=== PATIENT | female | born 2000 | race Caucasian/White ===

== ENCOUNTER 2021-07-01 04:00 | Emergency (ER) | payer OTHER, MEDICAID, SELFPAY ==
[2021-07-01 04:10] VITALS: BP 132/80; PULSE 115; RESP 22; TEMP 36.3; O2SAT 95; BMI 31.1
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
[2021-07-01] MEDS: LORazepam 0.5 MG TABLET PO (04:40)
== END 2021-07-01 04:55 | disposition home or self-care (01) ==
PROVIDERS: Emergency Provider Emergency Medicine
DX: F41.9 Anxiety disorder, unspecified (principal); F17.200 Nicotine dependence, unspecified, uncomplicated
CPT/HCPCS: 99283

== ENCOUNTER 2021-07-17 00:02 | Emergency (ER) | payer OTHER, MEDICAID, SELFPAY ==
[2021-07-17 00:09] VITALS: BP 132/93; PULSE 92; RESP 22; TEMP 37.1; O2SAT 100
[2021-07-17 00:33] LABS: Bacteria Urine Many (>30); RBC Urine 0-1/HPF (0-5/HPF); Squamous Epithelial Cell Urine 1-5 /HPF (0-5/HPF); WBC Urine 10-30/HPF (0-5/HPF)
[2021-07-17 00:34] LABS: Culture Indicated Urine Specimen Cultured
[2021-07-17] MEDS: cephALEXin 250 MG PREPACK 1 BOTTLE MISC (00:36)
--- NOTE | 2021-07-17 00:37 | ED_ITS ---
HPI - Female Genitourinary General Chief complaint: Urogenital-Female Stated complaint: UTI Time Seen by Provider: 07/17/21 00:27 Source: patient Mode of arrival: Ambulatory History of Present Illness HPI Narrative: 20-year-old female daily smoker without chronic medical problems presents with a chief complaint of 12-24 hours of dysuria, frequency and urgency. She denies any chance of being . She denies vaginal bleeding or discharge. She denies systemic findings such as fever, chills nor nausea or vomiting. She has no back pain. Related Data Previous Rx's Medication Instructions Recorded hydroxyzine HCl 50 mg tablet 50 mg PO QID PRN #30 tab 07/01/21 cephalexin 500 mg capsule 500 mg PO BID #10 cap 07/17/21 Review of Systems Review of Systems Narrative: GENERAL: Denies chills, fatigue, malaise, fever, sweats. HEENT: Denies sinus pain, ear pain, sore throat, difficulty swallowing, dizziness. RESPIRATORY: Denies dyspnea, cough, wheezing, hemoptysis, sputum. CARDIOVASCULAR: Denies chest pain, palpitations, orthopnea, edema, GASTROINTESTINAL: Denies nausea, vomiting, abdominal pain, diarrhea, constipation, melena. : See HPI MUSCULOSKELETAL: denies weakness, joint pain, or bony pain SKIN: Denies rash, skin lesions, or other NEUROLOGIC: Denies weakness, headache, numbness, change in speech, confusion, seizures, incoordination. PSYCHIATRIC: No concerning psychosocial issues. 12 point review of systems is negative except for those stated above Patient History alcohol intake frequency: 0-2 drinks per day Substance Use Type: marijuana and methamphetamine Exam Narrative Exam Narrative: GEN: AOx3 and in mild distress EYES: Pupils are equal, round, and reactive to light and accommodation. Extraoccular muscles are intact bilaterally. There is no subconjunctival hemorrhage or exudate. CHEST: Lungs are clear to auscultation bilaterally and free of wheezes, rales, or rhonchi. Heart rate is regular rhythm, there are no murmurs, clicks, rubs, or gallops. There is no chest wall tenderness. ABD: Abdomen is soft and nontender. There is no guarding or rebound. Bowel sounds are normal in all 4 quadrants. There is no mass or organomegaly. BACK: Back is nontender and free of any obvious external abnormalities. Patient exam is absent of any decreased range of motion, muscle spasm, CVA tenderness, or vertebral point tenderness. There are no symptoms of cauda equina such as saddle anesthesia, and decreased reflexes, decreased sensation or strength. EXT: Full painless ROM of all extremities with no loss of sensation or strength. SKIN: Warm, pink, and dry. No erythema or rash Initial Vital Signs Initial Vital Signs: Vital Signs Temperature 98.7 F 07/17/21 00:09 Pulse Rate 92 H 07/17/21 00:09 Respiratory Rate 22 07/17/21 00:09 Blood Pressure 132/93 H 07/17/21 00:09 Pulse Oximetry 100 07/17/21 00:09 Course Orders Ordered: ED Orders 07/17/21 00:11 Urine Culture Stat 07/17/21 00:21 Urine Microscopic Stat Discontinued Medications Cefazolin Sodium (Cephalexin 250 Mg Prepack) 1 bottle MIS SEEINSTR ONE Stop: 07/17/21 00:28 Last Admin: 07/17/21 00:36 Dose: 1 bottle Documented by: TRANG Vital Signs Vital signs: Vital Signs - 8 hr 07/17/21 00:09 Temperature 98.7 F Pulse Rate 92 H Respiratory Rate 22 Blood Pressure 132/93 H Pulse Oximetry 100 MDM - Female Genitourinary Lab Data Labs: Lab Results 07/17/21 Range/Units 00:11 Urine RBC 0-1/hpf (0-5/HPF) Urine WBC 10-30/hpf H (0-5/HPF) Ur Squamous Epith Cells 1-5 /hpf (0-5/HPF) Urine Bacteria Many (>30) H (None) Ur Culture Indicated? Specimen cultured Point of Care Testing Test Results Negative Urine Dip Bedside Urine Glucose Negative Bedside Urine Bilirubin - Negative Bedside Urine Ketone +/- 5 Urine Specific [place] 1.025 Bedside Urine Occult Blood - Negative Bedside Urine pH 6.0 Bedside Urine Protein - Negative Bedside Urine Urobilinogen - Negative Bedside Urine Nitrite - Negative Bedside Urine Leukocytes + 70 Esterase Discharge Plan Departure Patient Disposition: Home Clinical Impression: Urinary tract infection Instructions: DI for Urinary Tract Infection (UTI) Activity Restrictions/Additional Instructions: *You have been diagnosed with [urinary tract infection] *What to do: *Please continue to take your regular medications as directed. [ x] New medication prescriptions sent to your pharmacy: [ [facility]] [ ] New medication written as a paper prescription [ ] No new medications given *Please follow up with your primary care provider in 2-3 days, call for an appointment. Let them know you were seen in the Emergency Department and that we ask that you be seen in follow up. We will electronically transmit a record of today's note if your PCP is in our system *If you do not have a primary care provider please contact the [facility] Resource line at [phone]. They will ask some questions about your medical history and help get you set up with a doctor in the community. *Return to Emergency Department if you should have any new, worsening or concerning symptoms, such as [fever greater than 101 F, shaking chills, worsening pain, persistent vomiting or other bothersome symptoms] Prescriptions: New cephalexin 500 mg capsule 500 mg PO BID Qty: 10 0RF No Action hydroxyzine HCl 50 mg tablet 50 mg PO QID PRN (Reason: anxiety) Qty: 30 0RF Referrals: Miscellaneous,Doctor, MD [Primary Care Provider] -
== END 2021-07-17 00:37 | disposition home or self-care (01) ==
PROVIDERS: Emergency Provider Emergency Medicine
DX: N39.0 Urinary tract infection, site not specified (principal)
CPT/HCPCS: 81003; 81015; 81025; 87077; 87086; 87186; 99282

== ENCOUNTER 2021-09-13 18:59 | Emergency (ER) | payer OTHER, MEDICAID, SELFPAY ==
[2021-09-13 19:16] VITALS: BP 137/86; PULSE 92; RESP 22; TEMP 36.7; O2SAT 99
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
== END 2021-09-13 20:21 | disposition home or self-care (01) ==
PROVIDERS: Emergency Provider Emergency Medicine
DX: F32.A Depression, unspecified (principal); S50.811A Abrasion of right forearm, initial encounter; X78.9XXA Intentional self-harm by unspecified sharp object, initial encounter
CPT/HCPCS: 99282; 99283

== ENCOUNTER 2021-11-05 01:13 | Emergency (ER) | payer OTHER, MEDICAID, SELFPAY ==
[2021-11-05 01:18] VITALS: BP 127/89; PULSE 68; RESP 18; TEMP 35.9; O2SAT 98
[2021-11-05 02:16] LABS: Bacteria Urine Many (>30); RBC Urine 5-10/HPF (0-5/HPF); Squamous Epithelial Cell Urine 5-10 /HPF (0-5/HPF)
[2021-11-05 02:17] LABS: Culture Indicated Urine Cult Not Indicated; Mucus Urine 1+ (Negative); WBC Urine 5-10/HPF (0-5/HPF)
--- NOTE | 2021-11-05 02:20 | ED.GENADULT ---
HPI - General Adult General Chief complaint: Urogenital-Female Stated complaint: dark urine w/odor adb pain x1 day Time Seen by Provider: 11/05/21 01:47 Source: patient Mode of arrival: Ambulatory History of Present Illness HPI narrative: Otherwise healthy 21-year-old woman presents today complaining that her urine is darker and smells stronger. She also notes that she has had some vaginal spotting today. She started control pills approximately 3 months ago and is currently mid cycle month 3 and states she takes pills regularly. She also has questions regarding testing for fertility and wondering if bladder infections an yeast infections might adversely affect her fertility. She has no complaints of fever, cough, abdominal pain, nausea, vomiting, diarrhea, dysuria, flank pain Related Data Previous Rx's Medication Instructions Recorded hydroxyzine HCl 50 mg tablet 50 mg PO QID PRN anxiety #30 tabs 07/01/21 cephalexin 500 mg capsule 500 mg PO BID #10 caps 07/17/21 Review of Systems Review of Systems Narrative: Remainder of complete review of systems is otherwise unremarkable except for that included in the HPI. Patient History Medical History Depression Social History Smoking Status: Current every day smoker Smoking Status: Current every day smoker alcohol intake frequency: 0-2 drinks per day Substance Use Type: marijuana and methamphetamine Exam Initial Vital Signs Initial Vital Signs: Vital Signs Temperature 96.7 F L 11/05/21 01:18 Pulse Rate 68 11/05/21 01:18 Respiratory Rate 18 11/05/21 01:18 Blood Pressure 127/89 11/05/21 01:18 Pulse Oximetry 98 11/05/21 01:18 Oxygen Delivery Method 11/05/21 01:18 General: Alert appropriate in no acute distress Respiratory: Able to speak in full sentences, no obvious respiratory distress Skin: No obvious rashes, warm and dry Neurologic: Grossly intact no obvious asymmetries or abnormalities Psych: appropriate insight and affect, cooperative Course Orders Ordered: ED Orders 11/05/21 01:30 Urine Microscopic Stat Vital Signs Vital signs: Vital Signs - 8 hr 11/05/21 01:18 Temperature 96.7 F L Pulse Rate 68 Respiratory Rate 18 Blood Pressure 127/89 Pulse Oximetry 98 Oxygen Delivery Method Room Air Medical Decision Making Lab Data Labs: Lab Results 11/05/21 Range/Units 01:30 Urine RBC 5-10/hpf H (0-5/HPF) Urine WBC 5-10/hpf H (0-5/HPF) Ur Squamous Epith Cells 5-10 /hpf H (0-5/HPF) Urine Bacteria Many (>30) H (None) Urine Mucus 1+ H (Negative) Ur Culture Indicated? Cult not indicated Urine Dip Bedside Urine Glucose Negative Bedside Urine Bilirubin - Negative Bedside Urine Ketone - Negative Urine Specific [place] 1.020 Bedside Urine Occult Blood +++ Bedside Urine pH 6.0 Bedside Urine Protein - Negative Bedside Urine Urobilinogen - Negative Bedside Urine Nitrite - Negative Bedside Urine Leukocytes - Negative Esterase Point of care testing: Urine Dip Bedside Urine Glucose Negative Bedside Urine Bilirubin - Negative Bedside Urine Ketone - Negative Urine Specific [place] 1.020 Bedside Urine Occult Blood +++ Bedside Urine pH 6.0 Bedside Urine Protein - Negative Bedside Urine Urobilinogen - Negative Bedside Urine Nitrite - Negative Bedside Urine Leukocytes - Negative Esterase MDM Narrative Medical decision making narrative: 21-year-old woman with complaints of darker urine and now noting vaginal spotting. Her urinalysis shows minor amount of blood only. There is no evidence of bladder infection, kidney infection, , sexually transmitted infection. We discussed the lack of testing that can predict actual fertility aside from trying to get . We also talked about irregular bleeding and spotting commonly happening in the 1st months of starting control pills. I suggested that the dark urine may be related to mild dehydration and that she needs to drink more water while she is work. She seems satisfied with all of these answers had no additional questions and is safe for home discharge Discharge Plan Departure Patient Disposition: Home Clinical Impression: Vaginal spotting Activity Restrictions/Additional Instructions: Thank you for coming in today Your urine test is quite reassuring. There is no evidence of a bladder infection. I suspect that the darker color and more noticeable smell is simply because your slightly dehydrated and need to be drinking more water You mentioned having some vaginal spotting today and you are currently mid cycle with control pills. This is currently your 3rd month on control pills and occasionally you can have irregular spotting. At this point I would recommend giving it a bit more time and continuing control pills at the same time every day as you have been doing. If you continue to have spotting please follow-up with your OBGYN to see if you need a different type of control pill. If you find that you are getting worse or develop any new symptoms, please feel free to return to the emergency department for further evaluation. Prescriptions: No Action cephalexin 500 mg capsule 500 mg PO BID Qty: 10 0RF hydroxyzine HCl 50 mg tablet 50 mg PO QID PRN (Reason: anxiety) Qty: 30 0RF Referrals: Miscellaneous,Doctor, MD [Primary Care Provider] -
[2021-11-05 02:42] VITALS: BP 129/71; PULSE 72; RESP 18; O2SAT 99
== END 2021-11-05 02:42 | disposition home or self-care (01) ==
PROVIDERS: Emergency Provider Emergency Medicine
DX: N93.9 Abnormal uterine and vaginal bleeding, unspecified (principal)
CPT/HCPCS: 81003; 81015; 99281; 99282

== ENCOUNTER 2022-02-08 15:32 | Emergency (ER) | payer OTHER, MEDICAID, SELFPAY ==
[2022-02-08 16:04] VITALS: BP 107/73; PULSE 100; RESP 20; TEMP 36.2; O2SAT 100; BMI 31.4
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
--- NOTE | 2022-02-08 17:02 | ED.PSYCH ---
HPI - Psych General Chief Complaint: Psychiatric Symptoms Stated Complaint: Mental breakdown, Anxiety, Stress Time Seen by Provider: 02/08/22 16:26 Source: patient Mode of arrival: Family Vehicle History of Present Illness HPI Narrative: Patient is a 21-year-old female presents with suicide ideation and depression. She says that she frequently has suicidal thoughts but she never really act on them. Her depression kind of comes and goes in waves. She has been trying for quite some time to get help but has been unsuccessful. She says that she call [facility] every Saturday for help and can not get any. No in will start her on antidepression medication without seeing a psychiatrist. She tried to get started back on her ADHD medication however her PCP would not give it to her. 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 She has severe anxiety reaction today. She was supposed to go to work at 11:00 a.m. she forgot to set her alarm she says the that is normal for her. She woke up at 2pm, she and her fiance did some personal things were then she was upset that she did not go to work. She has had some stress with her car. She now is claiming that she wants to kill herself because she can not get help. She has stenosis number enough time. Related Data Previous Rx's Medication Instructions Recorded hydroxyzine HCl 50 mg tablet 50 mg PO QID PRN anxiety #30 tabs 07/01/21 cephalexin 500 mg capsule 500 mg PO BID #10 caps 07/17/21 Allergies Allergy/AdvReac Type Severity Reaction Status Date / Time No Known Drug Allergies Allergy Verified 02/08/22 16:04 Review of Systems Review of Systems Narrative: GENERAL: Denies chills, fatigue, malaise, fever, sweats, travel HEENT: Denies sinus pain, ear pain, sore throat, difficulty swallowing, neck pain RESPIRATORY: Denies dyspnea, cough, wheezing, hemoptysis, sputum. CARDIOVASCULAR: Denies chest pain, palpitations, orthopnea, edema GASTROINTESTINAL: Denies nausea, vomiting, abdominal pain, diarrhea, constipation, melena. : Denies dysuria, frequency, incontinence, hematuria, urinary retention, flank pain. MUSCULOSKELETAL: Denies weakness, joint pain, or bony pain SKIN: No rash, no erythema, no pruritus NEUROLOGIC: Denies weakness, dizziness, headache, numbness, change in speech, confusion PSYCHIATRIC: See HPI 12 point review of systems is negative except for those stated above and HPI Patient History Medical History Depression Social History Smoking Status: Current every day smoker Smoking Status: Current every day smoker alcohol intake frequency: 0-2 drinks per day Substance Use Type: former substance user, marijuana and methamphetamine Exam Initial Vital Signs Initial Vital Signs: Vital Signs Temperature 97.2 F L 02/08/22 16:04 Pulse Rate 100 H 02/08/22 16:04 Respiratory Rate 20 02/08/22 16:04 Blood Pressure 107/73 02/08/22 16:04 Pulse Oximetry 100 02/08/22 16:04 Oxygen Delivery Method 02/08/22 16:04 GENERAL: Well-appearing, well-nourished and in no acute distress. CARDIOVASCULAR: peripheral pulses in tact, cap refill <2 sec RESPIRATORY: No respiratory distress, speaks in full sentences without difficulty EXTREMITIES: Normal range of motion, no clubbing or edema. Neurovascularly intact NEUROLOGICAL: Cranial nerves II through XII grossly intact. Normal gait and speech. SKIN: Warm, dry, no petechiae, no rashes or lesions. Psych Appearance: grossly normal and well kempt Mental Status: mental status grossly normal Speech and Movement: speech and movement normal and speech clear Mood: anxious mood and dysthymic mood Affect: sad Attitude: cooperative Thought Process: normal and circumstantial Thought Content: normal Judgment: judgment good and fair Course Orders Ordered: ED Orders 02/08/22 16:15 Consult to [employer] - [employer] Technician Stat 02/08/22 17:00 Acetaminophen Stat Complete Blood Count AUTO DIFF Stat Comprehensive Metabolic Panel Stat Ethanol (ETOH) Stat Free T4, Direct Thyroxine Stat Salicylate Stat Thyroid Stimulating Hormone Stat Vital Signs Vital signs: Vital Signs - 8 hr 02/08/22 16:04 Temperature 97.2 F L Pulse Rate 100 H Respiratory Rate 20 Blood Pressure 107/73 Pulse Oximetry 100 Oxygen Delivery Method Room Air MDM - Psych Lab Data Result diagrams: 02/08/22 17:00 02/08/22 17:00 Labs: Lab Results 02/08/22 02/08/22 02/08/22 Range/Units 17:00 17:00 17:00 WBC 7.6 (4.5-11.0) X10^3/uL RBC 5.07 (4.0-5.2) X10^6/uL Hgb 15.3 (12.0-16.0) g/dL Hct 44.4 (36-46) % MCV 87.6 (80-100) fL MCH 30.2 (26-34) PG MCHC 34.4 (30-36) % RDW 13.0 (11.6-14.8) % Plt Count 210 (150-400) X10^3/uL Neut % (Auto) 67.3 (50-75) % Lymph % (Auto) 22.6 L (25-40) % Fergus % (Auto) 6.1 (3-14) % Eos % (Auto) 3.1 (2-4) % Baso % (Auto) 0.9 (0-2) % Neut # (Auto) 5100 (4801-5226) /uL Lymph # (Auto) 1700 (8483-2285) /uL Fergus # (Auto) 500 (0-900) /uL Eos # (Auto) 200 (0-450) /uL Baso # (Auto) 100 (0-100) /uL Sodium 139 (137-145) mmol/L Potassium 3.6 (3.4-5.1) mmol/L Chloride 105 (98-107) mmol/L Carbon Dioxide 22 (22-32) mmol/L BUN 9 (7-17) mg/dL Creatinine 0.83 (0.52-1.04) mg/dL Estimated GFR > 60 (>60) mL/min BUN/Creatinine Ratio 10.8 (6-22) Glucose 67 L (70-100) mg/dL Calcium 9.4 (8.4-10.2) mg/dL Total Bilirubin 0.9 (0.2-1.3) mg/dL AST 23 (14-36) IU/L ALT 16 (<35) IU/L Alkaline Phosphatase 90 (38-126) U/L Total Protein 8.1 (6.3-8.2) g/dL Albumin 4.6 (3.5-5.0) g/dL Globulin 3.5 (1.7-4.1) g/dL Albumin/Globulin Ratio 1.3 (1.0-2.8) TSH 0.456 L (0.47-4.68) uIU/mL Free T4 1.62 (0.78-2.19) ng/dL Salicylates < 1.0 (<20) mg/dL Acetaminophen < 10 (10-30) ug/mL Ethyl Alcohol < 10 ( - 10) mg/dL MDM Narrative Medical decision making narrative: Patient really has no specific plan. She has never attempted suicide in the past. She has a grandmother's dog to take care. She is no longer suicidal. She really wants to be on depression medication. She has appointment with psychiatry and P in about 2 weeks. He has been seen evaluated by social Work who agrees that she does not meet involuntary criteria and patient like to go home with her fiance. Discharge Plan Departure Patient Disposition: Home Clinical Impression: Depression Instructions: Depression Activity Restrictions/Additional Instructions: *You have been diagnosed with depression *What to do: If you are feeling suicidal or having suicidal thoughts: Call: Suicide Hotline: 038 Visit: www.[employer].org Text: 216061 *Continue to take medications as directed *Follow up with your primary care provider in 2-3 days or call [phone] *Return to ER if you should have a worsening depression thoughts of harming self or any new, worsening or concerning symptoms Prescriptions: No Action cephalexin 500 mg capsule 500 mg PO BID Qty: 10 0RF hydroxyzine HCl 50 mg tablet 50 mg PO QID PRN (Reason: anxiety) Qty: 30 0RF Referrals: Miscellaneous,Doctor, [Primary Care Provider] - Visit Report Forms: Patient Portal/API
[2022-02-08 17:21] LABS: Add Manual Diff / Slide Review NO; Basophils Absolute Auto 100 /uL (0-100); Basophils Percent Auto 0.9 % (0-2); Eosinophils Absolute Auto 200 /uL (0-450); Eosinophils Percent Auto 3.1 % (2-4); Hematocrit 44.4 % (36-46); Hemoglobin 15.3 g/dL (12.0-16.0); Lymphocytes Absolute Auto 1700 /uL (1100-4500); Lymphocytes Percent Auto 22.6 % (25-40); Mean Corpuscular HGB Conc 34.4 % (30-36); Mean Corpuscular Hemoglobin 30.2 PG (26-34); Mean Corpuscular Volume 87.6 fL (80-100); Monocytes Absolute Auto 500 /uL (0-900); Monocytes Percent Auto 6.1 % (3-14); Neutrophils Absolute Auto 5100 /uL (1500-7000); Neutrophils Percent Auto 67.3 % (50-75); Platelet Count 210 X10^3/uL (150-400); Red Blood Cell Count 5.07 X10^6/uL (4.0-5.2); White Blood Cell Count 7.6 X10^3/uL (4.5-11.0)
[2022-02-08 17:36] LABS: Acetaminophen < 10 ug/mL (10-30); Alanine Aminotransferase 16 IU/L (<35); Albumin 4.6 g/dL (3.5-5.0); Albumin Globulin Ratio 1.3 (1.0-2.8); Alkaline Phosphatase 90 U/L (38-126); Aspartate Aminotransferase 23 IU/L (14-36); BUN Creatinine Ratio 10.8 (6-22); Bilirubin Total 0.9 mg/dL (0.2-1.3); Blood Urea Nitrogen 9 mg/dL (7-17); Calcium 9.4 mg/dL (8.4-10.2); Carbon Dioxide 22 mmol/L (22-32); Chloride 105 mmol/L (98-107); Estimated Glomerular Filt Rate > 60 mL/min (>60); Ethanol (ETOH) < 10 mg/dL; Globulin 3.5 g/dL (1.7-4.1); Glucose 67 mg/dL (70-100); HEMOLYSIS 17 (0-50); Potassium 3.6 mmol/L (3.4-5.1); Salicylate < 1.0 mg/dL (<20); Sodium 139 mmol/L (137-145); Total Protein 8.1 g/dL (6.3-8.2)
--- NOTE | 2022-02-08 17:45 | CM.SWNOTE ---
SPIKE MACHINE FEEDER Assessment Note Patient is 21 y/o female who presents to the ED with Fiance seeking help and later states that they are seeking Anxiety and Depression medication. In triage patient endorses SI and endorses plans of using an Epi pen, narcan, taking pills, cutting self or jacking up a car and releasing it on self. Per triage, patient was concerning her fiance today with her behavior. Patient has hx of Depression, SI, Anxiety and ADHD. Patient endorses she has PCP in [place]. SPIKE MACHINE FEEDER enters room. Present in room is patient's fiance. Patient presents as dysthymic, congruent with mood, full range. A/Ox3 Patient denies current SI or intent to carry out plan. Patient endorses hx of overdose attempt last winter and went to this Hospital. Patient endorses when she thinks of SI plans she endorses the easiest way. SPIKE MACHINE FEEDER discusses the option of voluntary inpatient treatment and patient denies interest. Patient is tearful when it is reported by SPIKE MACHINE FEEDER and ED provider that anti depressant or anxiety medication cannot be started and prescribed from the ED. Patient and fiance discuss concern that this ED visit is a waste of time. Patient endorses she can contract for safety and inform fiance of grandma who she is experiencing SI. Patient endorses that her Grandma does not understand and sometimes her fiance is preoccupied with his MH. SPIKE MACHINE FEEDER offers crisis contacts and patient indicates agreement, SPIKE MACHINE FEEDER provides patient with list of crisis contacts. Patient endorses sometimes she does not feel safe at home when she hears voices other than her own. Patient and fiance endorse that patient has upcoming Psychiatric nurse Appt with Silvina Salmeron on 02/20/22 at 1pm. SPIKE MACHINE FEEDER encourages patient to keep that appt and attend appt, patient indicates agreement and understanding. It is the opinion of this SPIKE MACHINE FEEDER that patient would benefit from and meet criteria for Voluntary inpatient hospitalization, but patient is not voluntary and patient will mostlikely not meet criteria for [facility]. Patient is requesting to discharge to home. Patient contracts for safety and patient's fiance agrees to monitor patient. SPIKE MACHINE FEEDER reviews the above with ED provider Dr. More who indicates agreement and understanding. Plan: patient d/c to home with fiance with crisis contacts and upcoming field attendant appt on 02/20/22. MAYANK Jeronimo
[2022-02-08 17:51] LABS: Free T4, Direct Thyroxine 1.62 ng/dL (0.78-2.19)
[2022-02-08 18:05] LABS: Thyroid Stimulating Hormone 0.456 uIU/mL (0.47-4.68)
== END 2022-02-08 17:45 | disposition home or self-care (01) ==
PROVIDERS: Emergency Provider Emergency Medicine
DX: F32.A Depression, unspecified (principal)
CPT/HCPCS: 80053; 80320; 80329; 84439; 84443; 85025; 99284; G0480

== ENCOUNTER 2024-11-20 23:10 | Emergency (ER) | payer OTHER, SELFPAY ==
[2024-11-20 23:21] VITALS: BP 128/87; PULSE 106; RESP 18; TEMP 36.7; O2SAT 100; BMI 32.5
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
== END 2024-11-21 00:20 | disposition home or self-care (01) ==
PROVIDERS: Emergency Provider Family Medicine
DX: Z02.89 Encounter for other administrative examinations (principal)
CPT/HCPCS: 99281